=== PATIENT | male | born 1955 | race Two or more races ===

== ENCOUNTER 2019-09-24 20:24 | Emergency (ER) | payer SELFPAY ==
[~2019-09-24] VITALS: Ht 172.7 cm; Wt 77.1 kg
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
[2019-09-24] MEDS ORDERED: ONDANSETRON 4 MG TAB.RAPDIS SL ONE (21:30)
[2019-09-24] MEDS ORDERED: HYDROCODONE/APAP 10/325MG 1 EA TABLET PO ONE (21:30)
[2019-09-24] MEDS ORDERED: HYDROCODONE/APAP 10/325MG 1 EA TABLET ONE (21:37)
[2019-09-24] MEDS ORDERED: ONDANSETRON 4 MG TAB.RAPDIS ONE (21:37)
[2019-09-25 00:34] VITALS: BP 143/85
--- NOTE | 2019-09-25 00:34 | NUR ---
Patient discharged to home in stable condition. Written and verbal after care instructions given. Patient verbalizes understanding of instruction. Pt ambulatory with a steady gait
== END 2019-09-25 00:36 | disposition home or self-care (01) ==
LOC: ER 20:26
DX: S01.111A Laceration without foreign body of right eyelid and periocular area, initial encounter (principal); S05.11XA Contusion of eyeball and orbital tissues, right eye, initial encounter; S09.8XXA Other specified injuries of head, initial encounter; M47.812 Spondylosis without myelopathy or radiculopathy, cervical region; M54.2 Cervicalgia; R11.10 Vomiting, unspecified; Z59.0 Homelessness; Y08.89XA Assault by other specified means, initial encounter; Y93.89 Activity, other specified; Y92.89 Other specified places as the place of occurrence of the external cause; Y99.8 Other external cause status
CPT/HCPCS: 12011; 70450; 70486; 72125; 99285; A6403; Q0162

== ENCOUNTER 2021-02-16 08:04 | Emergency (ER) | payer MEDICARE, OTHER ==
[~2021-02-16] VITALS: Ht 172.7 cm; Wt 90.7 kg
[~2021-02-16 08:04] MED LIST: ALPR1TAB2 PO; HYDR-3980 PO
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
--- NOTE | 2021-02-16 08:15 | NUR ---
DR XIE AT BEDSIDE FOR EVAL.
--- NOTE | 2021-02-16 08:45 | NUR ---
URINE COLLECTED AND SENT TO THE LAB
[2021-02-16 08:46] LABS: BASOPHILS % (AUTO) 0.3 % (0.0-2.0); EOSINOPHILS % (AUTO) 0.1 % (0.0-6.0); HEMATOCRIT 45 % (39-51); HEMOGLOBIN 15.3 g/dL (13.5-17.5); LYMPHOCYTES # (AUTO) 0.6 K/uL (0.8-4.8); LYMPHOCYTES % (AUTO) 6.1 % (20.0-44.0); MEAN CORPUSCULAR HGB CONC 34 g/dl (31.0-36.0); MEAN CORPUSCULAR VOLUME 90 fL (80-96); MONOCYTES # (AUTO) 0.6 K/uL (0.1-1.30); MONOCYTES % (AUTO) 6.3 % (2.0-12.0); NEUTROPHILS # (AUTO) 8.8 K/uL (1.8-8.9); NEUTROPHILS % (AUTO) 87.2 % (43.0-81.0); PLATELET COUNT (AUTO) 211 K/uL (150-450); RED BLOOD CELL COUNT(AUTO) 4.99 MIL/uL (4.5-6.0); WHITE BLOOD COUNT (AUTO) 10.1 K/uL (4.3-11.0)
[2021-02-16 08:55] LABS: CARBON DIOXIDE 22 mmol/L (21-32); CHLORIDE 100 mmol/L (98-107); CREATININE 1.1 mg/dL (0.6-1.3); GLUCOSE 87 mg/dL (74-106); POTASSIUM 3.7 mmol/L (3.5-5.1); SODIUM SERUM 138 mmol/L (136-145); UREA NITROGEN, BLOOD 22 mg/dL (7-18)
[2021-02-16] MEDS ORDERED: LORAZEPAM INJ 2 MG/ML VIAL ONE ×3 (09:00→09:29)
[2021-02-16] MEDS ORDERED: LORAZEPAM INJ 2 MG/ML VIAL IM ONE (09:00)
[2021-02-16 09:09] LABS: ALANINE AMINOTRANSFERASE 37 U/L (12-78); ALBUMIN 4.2 g/dL (3.4-5.0); ALCOHOL, BLOOD 69 mg/dL (0-0); ALKALINE PHOSPHATASE 122 U/L (46-116); ASPARTATE AMINOTRANSFERASE 41 U/L (15-37); BILIRUBIN,DIRECT 0.2 mg/dL (0.0-0.2); TOTAL PROTEIN, SERUM 7.7 g/dL (6.4-8.2)
[2021-02-16 09:11] LABS: ACETAMINOPHEN < 0 ug/ml (10-30)
[2021-02-16 09:24] LABS: BILIRUBIN,URINE Negative (NEGATIVE); COLOR,URINE YELLOW (YELLOW); LEUKOCYTE ESTERASE ,URINE Negative (NEGATIVE); NITRITE, URINE Negative (NEGATIVE); PROTEIN,URINE Negative (NEGATIVE); UGLUCOSE Negative (NEGATIVE); UROBILINOGEN,URINE 0.2 EU/dL (0.2)
[2021-02-16] MEDS ORDERED: LORAZEPAM INJ 2 MG/ML VIAL IV ONE (10:00)
--- NOTE | 2021-02-16 10:10 | NUR ---
social worknorm garcia at bedside talking to patient.
[2021-02-16 10:40] VITALS: BP 127/88
--- NOTE | 2021-02-16 10:40 | NUR ---
Patient discharged to home in stable condition. Written and verbal after care instructions given. Patient verbalizes understanding of instruction.
--- NOTE | 2021-02-16 10:40 | NUR ---
"Prism Inspector consult: emergency services director consult requested for drug use & homelessness. The pt. is a 65-year old male who presents to the ED with C/O increased agitation and pressured speech after methamphetamine use. The pt. appears well-groomed, A&O X4 and makes good eye contact. Pt. has elevated mood with circumstantial & pressured speech. The pt. denies SI/HI and denies hallucinations. Pt. states he has been experiencing homelessness since 2019. Pt. states he uses meth, cannabinoids and ETOH on a weekly basis. Pt. denies psych Hx. Pt. states he is ambulatory and stated he receives SSI. Pt. states he has family in [place] but is not in communication with them. Plan: Pt. stated he would like to be discharged to self and will use resources provided to find alf placement. Pt. signed homeless waiver and it was placed in the chart. SW provided pt. with homeless, addiction and mental health resources and he accepted them : RESOURCES: Year-round shelters: [place] [address] [address] ; [facility] [place] [address] [place] [address]; [facility] [address] [facility] [address] SPA 4 | [facility] Recreation [place] Provider: First to Serve Address: [address], [address] # of Beds: 48 Population Served: [facility] Provider: First to Serve Address: [address] [facility], [address] # of Beds: 73 Population Served: [facility] 6 | [facility] Provider: Home at Last Address: [address] [facility], [address] # of Beds: 63 Population Served: [facility] 3 | [facility] Provider: [employer] [facility] [place] Address: [address] [facility], [address] # of Beds: 75 Population Served: [facility] SPA 8 | [facility] Provider: [employer] [facility] [place] Address: [address] [facility], [address] # of Beds: 80 Population Served: [place] SPA 1 | [facility] Provider: Dario ORTIZ Address: [address] [place] [address], [address] # of Beds: 85 Population Served: [place] SPA 2 | [facility] Provider: Sofya grijalva [facility] Address: Confidential (please call for location) # of Beds: 52 Population Served: [place] SPA 4 | [facility] Provider: [facility] Address: [address] [facility], [address] # of Beds: 49 Population Served: [facility] Provider: First To Serve Address: [address] [place] [address], [address] # of Beds: 27 Population Served: [facility] Hygiene: [facility]: [address] [facility] ; [facility] [address] [facility] ; [facility] [address] [facility] . Food Resources: [place] [employer] at [facility]- [address] [facility]; Meet Each Need with [facility] ([facility]) [address] [facility]; [facility] [address] [facility]; [facility] 8585 [facility]. Mental Health resources provided: [facility] [address] [place] [address] ; [facility] [address] [facility] [address], [place] [address] ; [facility] [address] [place] [address] ; [facility] [address] [place], [place] [id number] Healthcare Clinics: [facility] [address] [facility], [address] [place] ; [facility] [address] [facility] [address] [place] [address]; [facility] [address] [facility]. [place] [id number] [phone] Counseling--Outpatient [facility] [address] [facility], [address] [place], [place] [address] (Specializes in in-depth psychotherapy for emotional distress: anxiety, depression, interpersonal conflicts, life transitions, childhood abuse) PSYCHIATRIC OUTPATIENT SERVICES [facility] Partial Hospitalization and Intensive Outpatient Program (Managed Care and [place] Only) [address] [place] [address] [facility] [address] [facility] Partial Hospitalization and Outpatient Program [address] [place] [facility]. [address] [place], [place] [id number] [facility] Partial Hospitalization and Outpatient Program [address] [place] [address] [facility] [address] [facility]. [address] [place], [place] [address] [facility] Partial Hospitalization and Outpatient Program [address] [place], [place] [phone] Substance use resources provided included: [facility] Substance Abuse Self-Helpline (SAS) ; [facility] [address] [facility]. [place] 9[address]261 ; [facility] [address] [facility] [address] ; [facility] [address] [facility] [address] ; [facility] 4940 [facility] [id number] ; [facility] [address]09 [facility] [address] ; [facility] [place]; [facility] [place]; [facility] [place]; Alcoholics Anonymous -SFV"
== END 2021-02-16 10:40 | disposition home or self-care (01) ==
LOC: ER 08:09
DX: R45.1 Restlessness and agitation (principal); F15.129 Other stimulant abuse with intoxication, unspecified; F10.10 Alcohol abuse, uncomplicated; Y90.3 Blood alcohol level of 60-79 mg/100 ml; R00.0 Tachycardia, unspecified; F12.10 Cannabis abuse, uncomplicated; Z79.899 Other long term (current) drug therapy; Z20.822 Contact with and (suspected) exposure to COVID-19; Z59.0 Homelessness
CPT/HCPCS: 36415; 80048; 80076; 80143; 80307; 80320; 81003; 85025; 87426; 96372 ×2; 99284; J2060 ×2; C9803; G0480

== ENCOUNTER 2021-09-10 12:36 | Emergency (ER) | payer OTHER, MEDICARE ==
[~2021-09-10] VITALS: Ht 170.2 cm; Wt 83.9 kg
--- NOTE | 2021-09-10 12:40 | NUR ---
AT BEDSIDE FOR EVAL.
[2021-09-10 12:41] VITALS: BP 147/93
--- NOTE | 2021-09-10 12:49 | NUR ---
Patient discharged in custody in stable condition. Written and verbal after care instructions given. Patient verbalizes understanding of instruction.
== END 2021-09-10 12:49 | disposition home or self-care (01) ==
LOC: ER 12:39
DX: I10 Essential (primary) hypertension (principal); F17.200 Nicotine dependence, unspecified, uncomplicated; Z60.2 Problems related to living alone; Z79.899 Other long term (current) drug therapy